=== PATIENT | male | born 1985 | race African-American/Black ===

== ENCOUNTER → 2017-04-23 | Outpatient (CLI) | payer OTHER | LOC: COL.VAS 13:15 | DX: I42.9 Cardiomyopathy, unspecified (principal) ==

== ENCOUNTER 2017-06-30 07:48 | Outpatient (CLI) | payer OTHER ==
[~2017-06-30] VITALS: Ht 175.3 cm; Wt 98.0 kg
[2017-06-30] MEDS ORDERED: VERELAN180 MG PO (08:16)
[2017-06-30] MEDS ORDERED: TOPROL XL 50MG50 MG PO (08:17)
[2017-06-30 08:27] VITALS: BP 151/82; PULSE 64; TEMP 98.2
[2017-06-30] MEDS ORDERED: CEPHALEXIN500 M1 PO (09:38)
== END 2017-06-30 09:53 | disposition home or self-care (01) ==
LOC: COL.CAR 07:48
DX: I42.1 Obstructive hypertrophic cardiomyopathy (principal)
CPT/HCPCS: 27124; C1764